=== PATIENT | female | born 1990 | race Caucasian/White ===

== ENCOUNTER 2017-08-14 15:44 | Emergency (ER) | payer MEDICAID, OTHER ==
[~2017-08-14] VITALS: Ht 157.5 cm; Wt 61.8 kg
[~2017-08-14 15:44] MED LIST: IBUP100T53 PO
[2017-08-14] MEDS ORDERED: KETOROLAC TROMETHAMINE 30 MG/ML VIAL IM ONE (19:15)
[2017-08-14 19:20] VITALS: BP 112/62
== END 2017-08-14 19:28 | disposition home or self-care (01) ==
LOC: EMS 15:52
DX: S29.012A Strain of muscle and tendon of back wall of thorax, initial encounter (principal); X58.XXXA Exposure to other specified factors, initial encounter; Y93.89 Activity, other specified; Y92.89 Other specified places as the place of occurrence of the external cause; Y99.8 Other external cause status
CPT/HCPCS: 96372; 99283; J1885

== ENCOUNTER 2017-09-06 15:48 | Emergency (ER) | payer OTHER ==
[~2017-09-06] VITALS: Ht 157.5 cm; Wt 68.2 kg
[2017-09-06 16:05] VITALS: BP 117/68
== END 2017-09-06 17:43 | disposition left against medical advice (07) ==
LOC: EMS 15:50
DX: Z53.21 Procedure and treatment not carried out due to patient leaving prior to being seen by health care provider (principal)

== ENCOUNTER 2018-02-26 12:52 | Emergency (ER) | payer OTHER ==
[~2018-02-26] VITALS: Ht 157.5 cm; Wt 72.7 kg
[2018-02-26 15:28] LABS: APPEARANCE,URINE CLOUDY (CLEAR); BILIRUBIN,URINE NEGATIVE (NEGATIVE); GLUCOSE, URINE (UA) NEGATIVE (NEGATIVE); KETONES,URINE NEGATIVE (NEGATIVE); LEUKOCYTE ESTERASE ,URINE SMALL (NEGATIVE); NITRATE,URINE NEGATIVE (NEGATIVE); OCCULT BLOOD,URINE TRACE (NEGATIVE); PH,URINE 6.5 (5.0-8.0); PROTEIN,URINE NEGATIVE (NEGATIVE); UROBILINOGEN,URINE 0.2 mg/dL (<=1.0)
[2018-02-26 15:38] LABS: SQUAMOUS EPITHELIAL CELL,UR Many /LPF (None Seen)
[2018-02-26 15:39] LABS: BACTERIA,URINE Moderate /HPF (None Seen)
[2018-02-26 15:58] VITALS: BP 123/61
== END 2018-02-26 16:01 | disposition home or self-care (01) ==
LOC: EMS 12:53
DX: R11.2 Nausea with vomiting, unspecified (principal); R19.7 Diarrhea, unspecified; R10.84 Generalized abdominal pain
CPT/HCPCS: 87086; 99284

== ENCOUNTER 2022-09-06 08:53 | Emergency (ER) | payer OTHER ==
[~2022-09-06] VITALS: Ht 157.5 cm; Wt 70.0 kg
[2022-09-06 08:55] VITALS: BP 123/69
[2022-09-06] MEDS ORDERED: SULF-261 PO (09:46)
== END 2022-09-06 09:55 | disposition home or self-care (01) ==
LOC: EMS 09:00
DX: Q18.0 Sinus, fistula and cyst of branchial cleft (principal); L02.01 Cutaneous abscess of face
CPT/HCPCS: 99283